=== PATIENT | female | born 2005 | race Caucasian/White ===

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

== ENCOUNTER 2024-09-20 20:49 | Emergency (ER) | payer OTHER, SELFPAY ==
--- NOTE | ~2024-09-20 | US_ITS ---
CLINICAL HISTORY: 14 weeks preg, pain US OB 1st trimester transabdominal Comparison: None Findings: Single intrauterine , partially imaged. CRL: Not Measured or completely included in the field of view EGA: 14 weeks and 6 days by last menstrual period ITALIA: 03/15/2025, with last menstrual period of 06/08/2024 Imaged heart rate is 156 beats per minute at this time. movement is partially imaged in the submitted cine images. Imaged fetus demonstrates cephalic positioning of the time of the imaging. Partially imaged placenta is fundal. Left ovary measures 3.1 x 2.1 x 2.0 cm. Right ovary is obscured by overlying bowel gas. IMPRESSION: 1. No ultrasound findings of left-sided ovarian torsion. 2. Right ovary is obscured. 3. heart rate of the partially imaged gestation of 156 beats per minutes. Recommend nonemergent detailed anatomic survey. This document has been electronically signed by: Harley Shannon MD on 09/20/2024 22:30:34
[2024-09-20 20:55] VITALS: BP 127/70; PULSE 100; RESP 18; TEMP 36.3; O2SAT 99; BMI 22.1
--- NOTE | 2024-09-20 20:57 | ED_ITS ---
HPI - General Adult General Chief complaint: Abdominal Pain Stated complaint: pain/stomach/headache pain-15wks preg Time Seen by Provider: 09/20/24 23:54 Source: patient Mode of arrival: ambulatory Limitations: no limitations History of Present Illness ED Provider: MACKENZIE NARVAEZ narrative: 19 yo female G1 and 15 weeks here with low back pain and pain in entire abdomen that started last night with runny nose. No fevers, nausea/vomiting, diarrhea, vaginal bleeding. She has had kidney stones before but this pain was everywhere. She tried a hot shower no relief. She came here to get checked out. MD complaint: back/abdominal pain Onset (ago): day(s) (1) Location: back and abdomen Radiation: back Severity: moderate Quality: aching Pain Consistency: now resolved Relieving factors: none Exacerbating factors: none Associated symptoms: denies other symptoms Treatments prior to arrival: none Related Data Previous Rx's ?Medication ?Instructions ?Recorded amoxicillin 875 mg-potassium 1 tab PO Q12H 7 days #14 tabs 11/11/23 clavulanate 125 mg tablet tramadol 50 mg tablet 50 mg PO Q8H PRN pain (scale score 11/11/23 7-10) #4 tabs Allergies Allergy/AdvReac Type Severity Reaction Status Date / Time No Known Allergies Allergy Verified 09/20/24 20:57 Review of Systems 2 Review of Systems: Constitutional : No Weight loss, No Fever, No Chills ENT/Mouth : No sore throat, pos Rhinorrhea Eyes: No Swelling, No Redness Cardiovascular : No Chest Pain, No SOB, No Edema Respiratory : No Cough, No Sputum, No Wheezing Gastrointestinal : no Nausea, no Vomiting, no Diarrhea, positive abdominal Pain, No Hematochezia, No Melena Genitourinary : No Dysuria, No Urinary Frequency, No Hematuria, No Urgency Musculoskeletal : No joint pain, No Myalgias, No Joint Swelling, pos back pain Skin : No Skin Lesions, No rash Neuro : No Weakness, No Numbness, No Dizziness, No Headache All other systems reviewed and are negative. [facility] Past Medical History Attestation statement: The following information was validated with the patient. Source: old records reviewed Medical History (Updated 09/21/24 @ 00:04 by Cathy Roldan DO) No pertinent past medical history Social History Social History (Updated 09/21/24 @ 00:04 by Cathy Roldan DO) Patient Tobacco Use Status: Never used Tobacco Physical Exam ED Vital Signs: Vital Signs - 24 hr 09/20/24 20:55 Temperature 97.3 F Pulse Rate 100 Respiratory Rate 18 Blood Pressure 127/70 Pulse Oximetry 99 Oxygen Delivery Method Room Air BMI result Body Mass Index 22.1 Appearance: Alert. Oriented X3. No acute distress. Eyes: Pupils equal, round and reactive to light. ENT: Pharynx moist mucous membrane Neck: Normal inspection. Neck supple. CVS: Normal heart rate and rhythm. Pulses normal. Respiratory: No respiratory distress. Breath sounds normal. Abdomen: Soft and non-tender. Skin: Skin warm and dry. Normal skin color. Normal skin turgor. Extremities: No lower extremity edema. Neuro: Oriented X 3. No motor deficit. No sensory deficit. CN2-12 intact Course Course Course Narrative: RME performed by Amita Frost PA-C. Patient is a 19 year old assigned female at presenting to the emergency department with abdominal pain, nasal drip, and sore throat. Patient states that she is 14 weeks and had sharp pain in her abdomen. Patient denies any discharge or bleeding. Detailed physical exam and review of systems are deferred to the admissions clinician. Labs, imaging, and swabs ordered. Patient placed back in the waiting room pending room availability and results. Medical Decision Making Medical Decision Making [facility] Narrative: 19 yo female not toxic here with c/o abd / back pain that was cramping and in waves but no n/v/d and no fevers. She has no discharge, bleeding, urinary symptoms. The patient is not toxic and has benign abdominal exam at this time will obtain UA, US of fetus, has no localized ttp to suggest biliary colic/appendicitis. She is 15 weeks at this time. She has mild nasal congestion but no fevers no need for abx - discussed tylenol and PRN benadryl. She is otherwise not acute appearing Differential Diagnosis Differential Diagnoses: The differential diagnosis associated with the presentation includes constipation, round ligament pain, abdominal pain in , URI Admission/Observation Consideration of admission/observation: Escalation of care including admission/observation considered does not want to wait any longer for IVF in room - given precautions to return Lab Data [facility] Lab Attestation statement: I reviewed the patient's lab results. 09/20/24 21:26 09/20/24 21:26 Labs: Lab Results 09/20/24 Range/Units 21:26 WBC 11.4 H (4.8-10.8) X10*3/uL RBC 4.29 (4.20-5.50) X10*6/uL Hgb 12.6 (12.0-16.0) g/dl Hct 35.5 L (37.0-47.0) % MCV 82.8 (80.0-98.0) fL MCH 29.4 (27.0-33.0) pg MCHC 35.5 H (31.0-35.0) g/dl RDW 12.3 (11.0-16.0) % Plt Count 285 (160-400) X10*3/uL MPV 9.7 (9.4-12.3) fL Immature Gran % (Auto) 0.4 (0.0-0.4) % Neut % (Auto) 57.6 (45-73) % Lymph % (Auto) 27.8 (20-40) % Rankin % (Auto) 6.4 (2-11) % Eos % (Auto) 7.4 H (0-4) % Baso % (Auto) 0.4 (0-2) % Lymph # (Auto) 3.2 (1.2-4.9) X10*3/uL Rankin # (Auto) 0.7 (0.1-1.2) X10*3/uL Eos # (Auto) 0.8 H (0.0-0.4) X10*3/uL Baso # (Auto) 0.0 (0.0-0.2) X10*3/uL Abs Immat Gran (auto) 0.04 H (0.00-0.03) X10*3/uL Absolute Neuts (auto) 6.6 (2.0-8.3) x10*3/uL Absolute Nucleated RBC 0.000 (0.0-0.012) X10*3/uL Nucleated RBC % (auto) 0.0 (0.0-0.2) /100WBC Sodium 136 (135-145) mmol/L Potassium 3.9 (3.3-5.1) mmol/L Chloride 105 (96-108) mmol/L Carbon Dioxide 22 (22-29) mmol/L Anion Gap 13 (12-20) BUN 8 L (9-16) mg/dL Creatinine 0.62 (0.5-1.4) mg/dL Estim Creat Clear Calc 109.1 Estimated GFR > 60 Random Glucose 83 (60-115) mg/dL Calcium 9.8 (8.4-10.2) mg/dL Magnesium 1.8 (1.6-2.6) mg/dL Total Bilirubin 0.2 (0.0-1.0) mg/dL AST 15 (5-31) U/L ALT 9 (0-31) U/L Alkaline Phosphatase 38 L (39-117) U/L Total Protein 7.3 (6.5-8.0) g/dL Albumin 3.9 (3.5-5.0) g/dL Beta HCG, Quant 95111 mIU/mL Urine Color Yellow Urine Appearance Clear Urine pH 6.5 (5.0-9.0) Ur Specific [place] 1.015 (1.005-1.025) Urine Protein Negative (Neg-Trace) mg/dL Urine Glucose (UA) Negative (Negative) mg/dL Urine Ketones Negative (Negative) mg/dL Urine Blood Negative (Negative) Urine Nitrite Negative (Negative) Ur Leukocyte Esterase Trace H (Negative) Urine RBC 0-2 (0-2) /HPF Urine WBC 6-10 H (0-5) /HPF Ur Squamous Epith Cells 6-10 (0-2) /HPF Urine Bacteria Trace (None Seen) Hyaline Casts 0-2 (0-2) /LPF Influenza Type A (PCR) NEGATIVE (Negative) Influenza Type B (PCR) NEGATIVE (Negative) RSV RNA Qual (PCR) NEGATIVE (Negative) SARS-CoV-2 RNA (RT-PCR) NEGATIVE (Negative) Independent Interpretation I performed an independent interpretation of an: Ultrasound (IUP) Radiology Impression Discussion of test interpretation with radiology: I have reviewed the radiologist's reading. Independent Historian Clinical information obtained from an independent historian. History obtained from or confirmed by: Spouse External Record Review External record reviewed: Outpatient record Discharge Plan Discharge Clinical Impression: Abdominal pain affecting Patient Disposition: Home, Self-Care Instructions: Abdominal Pain (ED) Additional Instructions: return for any worsening symptoms or localized pain today labs look good and no signs of infection in your urine US shows IUP please follow up with your OBGYN negative for covid, flu, rsv Findings: Single intrauterine , partially imaged. CRL: Not Measured or completely included in the field of view EGA: 14 weeks and 6 days by last menstrual period ITALIA: 03/15/2025, with last menstrual period of 06/08/2024 Imaged heart rate is 156 beats per minute at this time. movement is partially imaged in the submitted cine images. Imaged fetus demonstrates cephalic positioning of the time of the imaging. Partially imaged placenta is fundal. Left ovary measures 3.1 x 2.1 x 2.0 cm. Right ovary is obscured by overlying bowel gas. IMPRESSION: 1. No ultrasound findings of left-sided ovarian torsion. 2. Right ovary is obscured. 3. heart rate of the partially imaged gestation of 156 beats per minutes. Recommend nonemergent detailed anatomic survey. This document has been electronically signed by: Harley Shannon MD on 09/20/2024 22:30:34 Prescriptions: No Action amoxicillin-pot clavulanate 875-125 mg tablet 1 tab PO Q12H 7 Days Qty: 14 0RF tramadol 50 mg tablet 50 mg PO Q8H PRN (Reason: pain (scale score 7-10)) Qty: 4 0RF Print Language: Chilean
--- NOTE | 2024-09-20 21:26 | MHC.EDTECH ---
Patient brought into triage area,labs,urine,and sars/flu/rsv obtained and sent to lab.
--- OUTSIDE RECORDS SUMMARY | 2024-09-20 21:32 | XMS_ITS | Encounter Summary ---
Author Organization [employer] Address [address] [place] [address] Care Team Providers Care Office Clerk Routine Name Role Phone Laura Amaral DO Primary Care Provider [phone] Reason for Visit * Reason Onset Date Comments Medication Problem 09/12/2024 Encounter Details Date Type Department Care Team (Late st Contact Info) Description 09/12/2024 Telephone Internal Medicine - [facility] [address] [facility] [facility] [place] [address] Laura Amaral DO [address] [place] [address] Medication Problem Social History Tobacco Use Types Packs/Day Years Used Date Smoking Tobacco: Never Assessed Estimated Date of Delivery Comme nts Yes 03/15/2025 Sex and Gender Information Value Date Recorded Sex Assigned at Not on file Legal Sex Female 10:04 AM EST Gender Identity Not on file Sexual Orientation Not on file documented as of this encounter Progress Notes * Julienne Thorpe RN - 09/12/2024 9:29 AM EST Spoke with the patient c/o cold symptoms is 15 weeks has not see OB yet. Advised to take Tylenol Cold not multisymptom, robitussin DM , claritin drink tea with raw honey. Advised to check with OB for other medication she can take . She agrees and will call ob for an appt * Lorena Contreras MA - 09/12/2024 9:05 AM EST Seen 08/30 in urgent care. Symptoms have returned. * Sarita Bowen - 09/12/2024 9:01 AM EST Medication Problem: What is the name of the medication patient is having a problem with?: amoxicillin-clavulanate (AUGMENTIN) 875-125 mg per tablet What is the problem?: Patient states after she finished medication all of her sx returned, is asking to speak with provider Who is calling about the problem? : The patient Is this a NEW medication?: no How long has the patient been taking this medication? 08/30/24 Who prescribed this medication for the patient? Sara Ga NP Who is patients PCP?: Laura Amaral DO Payor: [employer] PLAN / Plan: [employer]ICA[employer] / Product Type: *No Product type* / documented in this encounter Plan of Treatment Upcoming Encounters Date Type Department Care Team (Late st Contact Info) Description 11/14/2024 9:00 AM EDT Office Visit Internal Medicine - [facility] [address] [place] [address] Radha Smith NP [address] [place] [address] documented as of this encounter Visit Diagnoses Not on filedocumented in this encounter Care Teams Office Clerk Routine Relationship Specialty Start Date End Date Laura Amaral DO [address] [place] [address] PCP - General Internal Medicine 08/28/24 documented as of this encounter
--- OUTSIDE RECORDS SUMMARY | 2024-09-20 21:32 | XMS_ITS | Encounter Summary ---
Author Organization [facility] Address [address] [place] [address] Care Team Providers Care Computer Hardware Designer Name Role Phone Laura Amaral DO Primary Care Provider [phone] Reason for Referral * Consultation (Urgent) - Authorized Specialty Diagnoses / Procedures Referred By Contact Referred To Contact Obstetrics and Gynecology Diagnoses 13 weeks gestation of Ivania Latham NP [address] [place] [address] Phone: tel: fax: Teresa Pritchett MD [address] [place] [address] Phone: tel: fax: Referral ID Status Reason Start Date Expiration Date Visits Requested Visits Authorized [id number] Authorized Specialty Services Required 09/08/2024 09/08/2025 1 1 Reason for Visit * Reason Onset Date Comments provider call back 09/08/2024 Encounter Details Date Type Department Care Team ([facility] Contact Info) Description [facility]2024 [facility] [address] [place] [address] Laura Amaral DO [address] [place] [address] provider call back Social History Tobacco Use Types Packs/Day Years Used Date Smoking Tobacco: Never Assessed Estimated Date of Delivery Comme nts Yes 03/15/2025 Sex and Gender Information Value Date Recorded Sex Assigned at Not on file Legal Sex Female 10:04 AM EST Gender Identity Not on file Sexual Orientation Not on file documented as of this encounter Progress Notes * Julienne Thorpe RN - 09/08/2024 9:30 AM EST Spoke with the patient she is 13 weeks she does not have a OBGYN. She was asking for her PCP to mange her. Explained that the PCP is not an OBGYN. She really needs to get one states she is on vitamins she doesn't no what to do she stated she is doing this by herself. Referral to OBGYN pended * Francesca Bowman - 09/08/2024 8:50 AM EST Pt wanted to inform that she is on amoxicillin. She is also 13 weeks and would only like to be seen by pcp instead of going to the hospital documented in this encounter Plan of Treatment Upcoming Encounters Date Type Department Care Team (Late st Contact Info) Description 11/14/2024 9:00 AM EDT Office Visit Internal Medicine - [facility] [address] [place] [address] Radha Smith NP [address] [place] [address] Scheduled Referrals Name Type Priority Associated Diagnoses Order Schedule Ambulatory referral to Obstetrics / Gynecology Outpatient Referral Routine 13 weeks gestation of 1 Occurrences starting 09/08/2024 until 09/08/2025 documented as of this encounter Visit Diagnoses Diagnosis 13 weeks gestation of - Primary documented in this encounter Care Teams Computer Hardware Designer Relationship Specialty Start Date End Date Laura Amaral DO [address] [place] [address] PCP - General Internal Medicine 08/28/24 documented as of this encounter
--- OUTSIDE RECORDS SUMMARY | 2024-09-20 21:32 | XMS_ITS | Encounter Summary ---
Author Organization [facility] Address [address] [place] [address] Care Team Providers Care Latex Caster Name Role Phone Laura Amaral DO Primary Care Provider [phone] Reason for Visit * Reason Onset Date Comments URI 08/28/2024 Encounter Details Date Type Department Care Team (Late st Contact Info) Description 08/28/2024 Telephone Internal Medicine - [place] [address] [place] [phone] Laura Amaral DO [address] [place] [address] URI Social History Tobacco Use Types Packs/Day Years Used Date Smoking Tobacco: Never Assessed Comments Unknown Sex and Gender Information Value Date Recorded Sex Assigned at Not on file Legal Sex Female 10:04 AM EST Gender Identity Not on file Sexual Orientation Not on file documented as of this encounter Progress Notes * Jazz Matos RN - 08/28/2024 3:05 PM EST Spoke to pt who is 11 wks - reports of ongoing congested cough with greenish phlegm/nasal congestion/ wheezing/chest tightness x few wks. She denies any fever/light-headedness. Pt is a new pt and has not been seen in the office.She has coming appt in 10/2024 with new PCP. No immed. appts avail.-provided tel no of the [facility] for appt jacques. She will callback office after for f/up appt. * Justus Mcfarlane - 08/28/2024 2:40 PM EST Patient call requires triage: Symptoms patient is presenting: uri symptoms for the last couple of months, trouble sleeping, pt isrecently found out she is , labs at [facility] done pt stated her white blood count is elevated, was given steroids and asthma pump to help and symtoms of uri came back worse for pt. Pt isnew to practice and has new pt appt 11-14-24 but would like to be seen sooner for symptoms How long has patient had these symptoms?: a couple of months For ALL patients calling to schedule any appointment (routine, sick visit, follow up, consult, etc.) in the outpatient setting please ask the following questions: Do you have fever of higher than 101, sore throat with difficulty swallowing or severe shortness ofbreath? no If YES to any of these above symptoms, send a message to triage and do not book. Red dot. If no, an audio or video visit should be booked. Have you had close contact with someone with Coronavirus in the last 14 days? no Have you traveled abroad? no Have you traveled recently to another state outside of [place], [place], [place], [place], [place], [place], [place]? no o If yes, did you quarantine for 14 days or have a negative covid test? no If yes to any of the above, patient is not to be scheduled in office until after 14 day quarantine or negative covid test. If pain or injury related was it due to an accident at work or from a motor vehicle accident? If yes, date of accident/Injury: No If yes, gather 3rd constitution party insurance information Third Constitution Party Information: PCP: Laura Amaral DO Payor: [facility] [employer] / Plan: [facility] MEDICAID / Product Type: *No Product type* / documented in this encounter Plan of Treatment Upcoming Encounters Date Type Department Care Team (Late st Contact Info) Description 11/14/2024 9:00 AM EDT Office Visit Internal Medicine - [address] [phone] Radha Smiht NP [address] [place] [address] documented as of this encounter Visit Diagnoses Not on filedocumented in this encounter Care Teams Latex Caster Relationship Specialty Start Date End Date Laura Amaral DO [address] [facility] [place] [address] PCP - General Internal Medicine 08/28/24 documented as of this encounter
--- OUTSIDE RECORDS SUMMARY | 2024-09-20 21:32 | XMS_ITS | Clinical Summary ---
Author Organization [place] [address] [facility] Address [address] [place] [address] Phone Care Team Providers Care Liability Claims Examiner Name Role Phone Laura Amaral DO Primary Care Provider [phone] Allergies No known active allergies Medications amoxicillin-cla vulanate (AUGMENTIN) 875-125 mg per tablet Take 1 tablet by mouth 2 (two) times a day for 10 days. 20 each 08/30/2024 Encounters Date Type Department Care Team Description 09/18/2024 Telephone Obstetrics and Gynecology [address] [phone] Eva Unger CNM Appointment 09/12/2024 [facility] [address] [place] [address] Laura Amaral DO Medication Problem 09/08/2024 [facility] [address] [place] [address] Laura Amaral DO provider call back 09/02/2024 Telephone Internal Medicine - [place] [address] [facility] [address] [place] [address] Sara Ga NP Results 08/30/2024 3:15 PM EST Office Visit [facility] - [place] [address] [place] [phone] Sara Ga NP Acute non-recurrent maxillary sinusitis (Primary Dx) 08/28/2024 [facility] [address] [place] [address] GuillermolavernLaura griffith DO URI from Last 3 Months Social History Tobacco Use Types Packs/Day Years Used Date Smoking Tobacco: Never Assessed Estimated Date of Delivery Comme nts Yes 03/15/2025 Sex and Gender Information Value Date Recorded Sex Assigned at Not on file Legal Sex Female 10:04 AM EST Gender Identity Not on file Sexual Orientation Not on file Obstetrics History Para Term AB IAB SAB Ectopic Multiple Livin g Live Births 1 Date Outcome GA Total Labor Labor/2nd/3rd Weight Sex Type Anes PTL Yesy A1 A5 Name Clin Current Last Filed Vital Signs Vital Sign Reading Time Taken Comments Blood Pressure 117/75 08/30/2024 3:19 PM EST Pulse 80 08/30/2024 3:19 PM EST Temperature 36.8 ??C (98.2 ??F) 08/30/2024 3:19 PM ES T Respiratory Rate - - Oxygen Saturation 99% 08/30/2024 3:19 PM EST Inhaled Oxygen Concentration - - Weight - - Height - - Body Mass Index - - Plan of Treatment Upcoming Encounters Date Type Department Care Team (Late st Contact Info) Description 11/14/2024 9:00 AM EDT Office Visit Internal Medicine - [address] [phone] Radha Smith, SHARLENE [address] [place] [address] Health Maintenance Due Date Last Done Comments Gonorrhea/Chlamydia Screening 2004 Meningococcal B Vacine (1 of 2 - Standard) 2020 Hepatitis B Vaccines (1 of 3 - 19+ 3-dose series) 2023 COVID-19 Vaccine ( - season) 2024 Influenza Vaccine (#1) 2024 08/13/2017, 2016 Annual Well Child Visit (3-21 years old) 08/28/2024 Depression Screening 08/28/2024 HIV Screening 08/28/2024 Hepatitis C Screening 08/28/2024 Social Influencers of Health Screening 08/28/2024 DTaP,Tdap,and Td Vaccines (7 - Td or Tdap) 08/19/2025 08/19/2015, 03/18/2010, 10/19/2005, Additional history exists IPV Vaccines Completed 03/18/2010, 10/28, 2004, Additional history exists HPV Vaccines Completed 02/21/2017, 08/22/2016 HIB Vaccines Aged Out No longer eligi ble based on patient's age to complete this topic Hepatitis A Vaccines Aged Out No long er eligible based on patient's age to complete this topic Meningococcal ACWY Vaccine Aged Out N o longer eligible based on patient's age to complete this topic Pneumococcal Vaccine: Pediatrics (0 to 5 Years) and At-Risk Patients (6 to 64 Years) Aged Out No longer eligible based on patient's age to complete this topic RSV Immunization Patients Under 20 months Aged Out No longer eligible based on patient's age to complete this topic Insurance PLAN Care Teams Liability Claims Examiner Relationship Specialty Start Date End Date Laura Amaral DO [address] [place] [address] PCP - General Internal Medicine 08/28/24
--- OUTSIDE RECORDS SUMMARY | 2024-09-20 21:32 | XMS_ITS | Encounter Summary ---
Author Organization [facility] Address [address] [place] [address] Care Team Providers Care Landscape Laborer Name Role Phone GuillermoLaura early Primary Care Provider [phone] Reason for Visit * Reason Onset Date Comments Appointment 09/18/2024 Encounter Details Date Type Department Care Team ( Contact Info) Description 09/18/2024 Telephone Obstetrics and Gynecology - [place] [address] [place] [phone] Eva Unger CNM [address] [place] [address] Appointment Social History Tobacco Use Types Packs/Day Years Used Date Smoking Tobacco: Never Assessed Estimated Date of Delivery Comme nts Yes 03/15/2025 Sex and Gender Information Value Date Recorded Sex Assigned at Not on file Legal Sex Female 10:04 AM EST Gender Identity Not on file Sexual Orientation Not on file documented as of this encounter Progress Notes * Marija Sanchez - 09/18/2024 4:26 PM EST Chief Complaint/problem: new to ob patient is aprrox 13 weeks ,started care at [facility] . Was referred by internal PCP . Patient signed release which I could not fax. I have scanned into chart She isaware once records have been received and reviewed we will contact her How long has the patient had this problem? Pt???s CHISEL GRINDER provider: Eva Unger CNM Last menstrual period (LMP) or EDC (due date): documented in this encounter Plan of Treatment Upcoming Encounters Date Type Department Care Team (Late Contact Info) Description 11/14/2024 9:00 AM EDT Office Visit Internal Medicine - [place] [address] [place] [address] Radha Smith, SHARLENE [address] [place] [address] documented as of this encounter Visit Diagnoses Not on filedocumented in this encounter Care Teams Landscape Laborer Relationship Specialty Start Date End Date Laura Amaral DO [address] [place] [address] PCP - General Internal Medicine 08/28/24 documented as of this encounter
--- OUTSIDE RECORDS SUMMARY | 2024-09-20 21:32 | XMS_ITS | Encounter Summary ---
Author Organization [facility] Address [address] [place] [address] Care Team Providers Care Mail Distributor Name Role Phone Jerodnacho Laura Primary Care Provider [phone] Reason for Visit * Reason Onset Date Comments Results 09/02/2024 Encounter Details Date Type Department Care Team (Late st Contact Info) Description 09/02/2024 Telephone Internal Medicine - [place] [address] [facility] [address] [place] [phone] Sara Ga NP [address] [place] [address] Results Social History Tobacco Use Types Packs/Day Years Used Date Smoking Tobacco: Never Assessed Estimated Date of Delivery Comme nts Yes 03/15/2025 Sex and Gender Information Value Date Recorded Sex Assigned at Not on file Legal Sex Female 10:04 AM EST Gender Identity Not on file Sexual Orientation Not on file documented as of this encounter Progress Notes * Audrey Khan MA - 09/02/2024 1:53 PM EST Called pt. Pt was requesting lab results. Informed pt. * Guerline Gaming RN - 09/02/2024 1:47 PM EST Sara Ga did not order xray at visit. Please have pt call ordering provider or pcp for results. * Yola Coello - 09/02/2024 10:40 AM EST Pt is requesting imaging results from visit 08/31/24 with sara documented in this encounter Plan of Treatment Upcoming Encounters Date Type Department Care Team (Late st Contact Info) Description 11/14/2024 9:00 AM EDT Office Visit Internal Medicine - [address] [phone] Radha Smith, SHARLENE [address] [place] [address] documented as of this encounter Visit Diagnoses Not on filedocumented in this encounter Care Teams Mail Distributor Relationship Specialty Start Date End Date Laura Amaral DO [address] [place] [address] PCP - General Internal Medicine 08/28/24 documented as of this encounter
--- OUTSIDE RECORDS SUMMARY | 2024-09-20 21:32 | XMS_ITS | Encounter Summary ---
Author Organization [facility] Address [address] [place] [address] Care Team Providers Care Graphics Production Specialist Name Role Phone Jerodnacho Laura Primary Care Provider [phone] Reason for Visit * Reason Comments Cough Wheezing Shortness of Breath Headache Encounter Details Date Type Department Care Team (Late st Contact Info) Description 08/30/2024 3:15 PM EST Office Visit [facility] [place] [phone] [place] [address] Sara Ga NP [address] [place] [address] Acute non-recurrent maxillary sinusitis (Primary Dx) Social History Tobacco Use Types Packs/Day Years Used Date Smoking Tobacco: Never Assessed Estimated Date of Delivery Comme nts Yes 03/15/2025 Sex and Gender Information Value Date Recorded Sex Assigned at Not on file Legal Sex Female 10:04 AM EST Gender Identity Not on file Sexual Orientation Not on file documented as of this encounter Last Filed Vital Signs Vital Sign Reading Time Taken Comments Blood Pressure 117/75 08/30/2024 3:19 PM EST Pulse 80 08/30/2024 3:19 PM EST Temperature 36.8 ??C (98.2 ??F) 08/30/2024 3:19 PM ES T Respiratory Rate - - Oxygen Saturation 99% 08/30/2024 3:19 PM EST Inhaled Oxygen Concentration - - Weight - - Height - - Body Mass Index - - documented in this encounter Ordered Prescriptions Prescription Sig Dispense Quantity Refills Last Filled Start Date End Date amoxicillin-clavul anate (AUGMENTIN) 875-125 mg per tablet Take 1 tablet by mouth 2 (two) times a day for 10 days. 20 each 08/30/2024 09/09/2024 documented in this encounter Progress Notes * Sara Ga NP - 08/30/2024 3:15 PM EST CHIEF COMPLAINT: Cough, Wheezing, Shortness of Breath, and Headache HPI: Maritza Barney is a 19 y.o. old female presents with upper respiratory infection signs and symptoms particularly cough congestion positive for yellow-green mucus difficulty breathing patient is currently 11 weeks ROS: Remainder of the 12 point review of symptoms unremarkable except for those idenitified in the HPI. PAST MEDICAL HISTORY: There are no problems to display for this patient. No past surgical history on file. SOCIAL HISTORY: Social History Tobacco Use Smoking status: Not on file Smokeless tobacco: Not on file Substance Use Topics Alcohol use: Not on file FAMILY HISTORY: No family history on file. No family status information on file. MEDICATIONS DISCONTINUED/REORDERED: There are no discontinued medications. ACTIVE MEDICATIONS: No outpatient medications have been marked as taking for the 08/30/24 encounter (Office Visit) with Sara Ga NP. ALLERGIES: No Known Allergies PHYSICAL EXAM: Vitals: 08/30/24 1519 BP: 117/75 Pulse: 80 Temp: 36.8 ??C (98.2 ??F) TempSrc: Oral SpO2: 99% CONSTITUTIONAL: alert, calm, cooperative, in no acute distress HEAD: normocephalic, atraumatic EYES: pupils equal, round, reactive to direct and consensual light, accommodation reflex present, extraocular movement intact (EOMI), sclera non-icteric EARS: auditory canal clear, tympanic membrane intact and clear with anterior light reflex, no air-fluid levels bilaterally NOSE: septum intact, no lesions, no discharge ORAL CAVITY: mucosa moist, gums normal, palate normal, tongue midline THROAT: no erythema, no exudate, pharynx normal, tonsils normal, uvula midline NECK/THYROID: neck range of motion grossly intact LYMPH: no cervical or supraclavicular lymphadenopathy SKIN: warm and dry HEART: S1, S2 normal, regular rate and rhythm, no murmurs, rubs, gallops LUNGS: clear to auscultation bilaterally, no wheezes, rales, rhonchi PSYCH: mood/affect full range, speech clear, good eye contact, cooperative with exam LABS/IMAGING: IMPRESSION: Sinusitis PLAN: The patient's PMH, problem list and medications were reviewed in reference to the above diagnosis/diagnoses. *. Based on History, ROS, HPI and PE, covid test performed (negative). *. Based on HPI, ROS and PE, suggestive of bacterial sinusitis. *. Prescribed Augmentin. Educated patient to complete entire course of antibiotic. Proper dosing and method to take medication addressed with patient. The risks and benefits of this medication were discussed with the patient. The patient understands the potential side effects and basic interactionsof this medication. The patient is asked to call me or my colleagues if they begin to experience any difficulties with this medication. *. Educated pt to rest,proper hydration, warm steamy showers *. Advised to follow up with PCP in 14 days, if symptoms are not improving. Advised to follow up with PCP immediately for new or worsening symptoms. *. Discussed warnings signs and symptoms that would require immediate follow up at UC/ER. Patient verbalized understanding and agreement with the plan. Advised to follow up with PCP if symptoms do not improve. Advised to follow up with UC or PCP immediately for new or worsening symptoms. Educated on red flags symptoms. Advised to go to the ER or call 911 for these symptoms. Patient understands the plan. Patient verbalizes agreement with the plan. No orders of the defined types were placed in this encounter. Sara Ga NP on 08/30/2024 at 3:28 PM EST Today's documentation was made using voice recognition software. This note may contain grammatical errors secondary to this software. documented in this encounter Plan of Treatment Upcoming Encounters Date Type Department Care Team (Late st Contact Info) Description 11/14/2024 9:00 AM EDT Office Visit Internal Medicine - [facility] [address] [place] [address] Radha Smith NP [address] [place] [address] documented as of this encounter Visit Diagnoses Diagnosis Acute non-recurrent maxillary sinusitis- Primary documented in this encounter Care Teams Graphics Production Specialist Relationship Specialty Start Date End Date Laura Amaral DO [address] [place] [address] PCP - General Internal Medicine 08/28/24 documented as of this encounter
[2024-09-20 21:34] LABS: Basophils Percent Auto 0.4 % (0-2); Eosinophils Absolute Auto 0.8 X10*3/uL (0.0-0.4); Eosinophils Percent Auto 7.4 % (0-4); Hematocrit 35.5 % (37.0-47.0); Hemoglobin 12.6 g/dl (12.0-16.0); Imm Gran Abs Auto 0.04 X10*3/uL (0.00-0.03); Imm Gran Pct Auto 0.4 % (0.0-0.4); Lymphocytes Absolute Auto 3.2 X10*3/uL (1.2-4.9); Lymphocytes Percent Auto 27.8 % (20-40); MANUAL DIFF FLAG NO; Mean Corpuscular HGB Conc 35.5 g/dl (31.0-35.0); Mean Corpuscular Hemoglobin 29.4 pg (27.0-33.0); Mean Corpuscular Volume 82.8 fL (80.0-98.0); Mean Platelet Volume 9.7 fL (9.4-12.3); Monocytes Absolute Auto 0.7 X10*3/uL (0.1-1.2); Monocytes Percent Auto 6.4 % (2-11); Neutrophils Absolute Auto 6.6 x10*3/uL (2.0-8.3); Neutrophils Percent Auto 57.6 % (45-73); Platelet Count 285 X10*3/uL (160-400); Red Blood Count 4.29 X10*6/uL (4.20-5.50); Red Cell Distribution Width 12.3 % (11.0-16.0); White Blood Count 11.4 X10*3/uL (4.8-10.8)
[2024-09-20 21:36] LABS: Appearance Urine Clear; Color Urine Yellow; Glucose Urine UA Negative (Negative); Leukocyte Esterase Urine Trace (Negative); Nitrite Urine Negative (Negative); PH 6.5 (5.0-9.0); Specific Gravity - Urine 1.015 (1.005-1.025); UMIC TRIGGER UACC YES; Urine Blood Negative (Negative); Urine Ketones Negative (Negative); Urine Protein Negative (Neg-Trace)
[2024-09-20 21:38] LABS: Bacteria Urine Trace (None Seen); Hyaline Casts Urine 0-2 /LPF (0-2); RBC Urine 0-2 /HPF (0-2); UACC Culture Trigger YES
[2024-09-20 21:59] LABS: Alanine Aminotransferase 9 U/L (0-31); Albumin Level 3.9 g/dL (3.5-5.0); Alkaline Phosphatase 38 U/L (39-117); Anion Gap 13 (12-20); Aspartate Amino Transferase 15 U/L (5-31); Bilirubin Total 0.2 mg/dL (0.0-1.0); Blood Urea Nitrogen 8 mg/dL (9-16); Calcium 9.8 mg/dL (8.4-10.2); Carbon Dioxide 22 mmol/L (22-29); Chloride 105 mmol/L (96-108); Creatinine Clr Calc Pharmacy 109.1; Estimated Glomerular Filt Rate > 60; Glucose Random 83 mg/dL (60-115); Magnesium 1.8 mg/dL (1.6-2.6); Potassium 3.9 mmol/L (3.3-5.1); Sodium 136 mmol/L (135-145); Total Protein 7.3 g/dL (6.5-8.0)
[2024-09-20 22:13] LABS: HCG Quantitative 71959 mIU/mL
[2024-09-20 22:20] LABS: Influenza A PCR NEGATIVE (Negative); Influenza B PCR NEGATIVE (Negative); Resp Syncy Virus RNA Qual PCR NEGATIVE (Negative); SARS COV2 PCR INHOUSE NEGATIVE (Negative)
[2024-09-21 05:19] VITALS: BP 127/70; PULSE 100; RESP 18; TEMP 36.3; O2SAT 99
== END 2024-09-21 | disposition home or self-care (01) ==
PROVIDERS: Physician Assistant Medical; Emergency Provider Emergency Medicine
DX: O26.892 Other specified pregnancy related conditions, second trimester (principal); R10.9 Unspecified abdominal pain; Z3A.14 14 weeks gestation of pregnancy; Z03.818 Encounter for observation for suspected exposure to other biological agents ruled out
CPT/HCPCS: 0241U; 76815; 80053; 81001; 83735; 84702; 85025; 87086; 99282; 99284

== ENCOUNTER → 2024-09-20 20:58 | Outpatient (BNV) | payer MEDICAID, SELFPAY | PROVIDERS: Visit Provider Radiology Neuroradiology | DX: R10.9 Unspecified abdominal pain (principal); Z3A.14 14 weeks gestation of pregnancy | CPT/HCPCS: 76815 ==